=== PATIENT | male | born 1970 | race Caucasian/White ===

== ENCOUNTER → 2017-04-12 | Outpatient (CLI) | payer OTHER ==
[2017-04-12 07:50] LABS: HCT 46.2 % (39.0-53.0); MCH 30.4 pg (25.0-35.0); MCHC 32.5 g/dL (31.0-37.0); MCV 93.4 fL (80.0-100.0); Mean Platelet Volume 7.3; Platelet Count 221 k/uL (150-450); RBC 4.95 m/uL (4.30-5.90); RDW 11.8 % (11.5-15.5); WBC 7.1 k/uL (3.8-10.6)
== END | disposition home or self-care (01) ==
LOC: LABPAT 07:29
PROVIDERS: ATTEND Surgery Plastic and Reconstructive Surgery
DX: Z01.812 Encounter for preprocedural laboratory examination (principal); K43.9 Ventral hernia without obstruction or gangrene
CPT/HCPCS: 36415; 85027

== ENCOUNTER 2017-08-01 06:26 | Day surgery (SDC) | payer OTHER ==
[2017-07-25 16:14] VITALS: BMI 24.3
[~2017-08-01 06:26] MED LIST: HYDROmorphone 0.5 MG/0.5 ML SYRINGE IVP PRN; LACTATED RINGERS 1,000 ML IV SCH; MORPHINE SULFATE 2 MG/ML SYRINGE IV PRN; ceFAZolin IN SWFI 2 GM/20 ML SYRINGE IVP ONE
[2017-08-01] MEDS ORDERED: HEPARIN SODIUM,PORCINE 5,000 UNIT/ML 1 ML VIAL SQ ONE (06:39)
[2017-08-01] MEDS ORDERED: ACETAMINOPHEN IV (For NPO) 1,000 MG in EMPTY BAG 1 BAG IVPB ONE (06:39)
--- NOTE | 2017-08-01 06:39 | P.GSHP ---
History of Present Illness H&P Date: 08/01/17 CHIEF COMPLAINT: Ventral hernia HISTORY OF PRESENT ILLNESS: The patient is a 46-year-old male who presents with a history of swelling and pain along the abdomen from a hernia. Now he presents for surgical intervention. PAST MEDICAL HISTORY: Please see list. PAST SURGICAL HISTORY: Please see list. MEDICATIONS: Please see list. ALLERGIES: Please see list. SOCIAL HISTORY: No illicit drug use FAMILY HISTORY: No reports of Crohn disease or ulcerative colitis. REVIEW OF ORGAN SYSTEMS: CONSTITUTIONAL: No reports of fevers or chills. No reports of weight loss. GI: Denies any blood in stools. PHYSICAL EXAM: VITAL SIGNS: Stable GENERAL: Well-developed pleasant male in no acute distress. HEENT: No scleral icterus. Extraocular movements grossly intact. Moist buccal mucosa. NECK: Supple without lymphadenopathy. CHEST: Unlabored respirations. Equal bilateral excursions. CARDIOVASCULAR: Regular rate and rhythm. Distal 2+ pulses. ABDOMEN: Soft, nondistended. Palpable defect of the abdomen. No peritoneal signs. MUSCULOSKELETAL: No clubbing, cyanosis, or edema. ASSESSMENT: 1. History of incarcerated umbilical hernia. 2. Previous history of left inguinal hernia repair. PLAN: 1. I have discussed open versus robotic approach, laparoscopic approach were reviewed. Robotic ventral hernia repair described. 2. I have asked him to be cautious of lifting over 25 pounds or more, as incarcerated hernia with bowel is more detrimental. 3. DVT prophylaxis. 4. Antibiotics prophylaxis. Past Medical History Past Medical History: No Reported History Additional Past Medical History / Comment(s): VENTRAL HERNIA. History of Any Multi-Drug Resistant Organisms: None Reported Past Surgical History: Hernia Repair Additional Past Surgical History / Comment(s): LT ING HERNIA. Past Anesthesia/Blood Transfusion Reactions: Motion Sickness Smoking Status: Current every day smoker - Past Family History Mother Family Medical History: No Reported History Medications and Allergies Home Medications Medication Instructions Recorded Confirmed Type Vitamin B Complex 1 each PO DAILY 07/25/17 07/25/17 History Allergies Allergy/AdvReac Type Severity Reaction Status Date / Time No Known Allergies Allergy Verified 07/25/17 13:08
[2017-08-01] MEDS: ONDANSETRON 4 MG/2 ML VIAL IVP PRN ×2 (07:03→07:06)
[2017-08-01] MEDS ORDERED: LIDOCAINE 1% 20 ML VIAL (10MG/ML) FOR IV START INTRADERMA ONE (07:03)
[2017-08-01] MEDS ORDERED: DEXAMETHASONE SOD PHOSPHATE 10 MG/ML 1 ML VIAL IV ONE (07:06)
[2017-08-01] MEDS ORDERED: IBUPROFEN IV 400 MG in SODIUM CHLORIDE 0.9% 250 ML IV ONE (07:09)
[2017-08-01] MEDS ORDERED: LIDOCAINE 1% INJ 10MG/ML (20 ML MDV) ONE (08:23)
[2017-08-01] MEDS ORDERED: ROCURONIUM BROMIDE 10 MG/ML 10 ML VIAL IV ONE (08:23)
[2017-08-01] MEDS ORDERED: PROPOFOL 10 MG/ML 20 ML VIAL IV ONE (08:23)
[2017-08-01] MEDS ORDERED: MIDAZOLAM 2 MG/2 ML VIAL ONE (08:23)
[2017-08-01] MEDS ORDERED: HYDROmorphone (PF) 1 MG/ML ONE (08:23)
[2017-08-01] MEDS ORDERED: SUCCINYLCHOLINE CHLORIDE 100 MG/5 ML SYR IV ONE (08:23)
[2017-08-01] MEDS ORDERED: fentaNYL (PF) 50 MCG/ML 2 ML AMP ONE (08:23)
[2017-08-01] MEDS ORDERED: BUPIVACAINE (PF) 0.5% 30 ML VIAL SQ ONE (08:48)
[2017-08-01] MEDS ORDERED: LACTATED RINGERS 1,000 ML IV ONE (09:52)
[2017-08-01] MEDS ORDERED: HYDROmorphone 1 MG/ML 1 ML SYRINGE IVP ONE ×2 (10:01→10:06)
[2017-08-01 10:06] VITALS: TEMP 98
[2017-08-01] MEDS ORDERED: MEPERIDINE 50 MG/ML SYRINGE IVP ONE (10:21)
[2017-08-01 10:48] VITALS: RESP 16
--- NOTE | 2017-08-01 11:17 | P.PCN ---
Date of Procedure: 08/01/17 Preoperative Diagnosis: Initial incarcerated umbilical hernia Postoperative Diagnosis: Same Procedure(s) Performed: Robotic-assisted repair of incarcerated umbilical hernia with mesh Anesthesia: LI, local Surgeon: Theresa Saleh [place] Hand #1: Pranav Soria Estimated Blood Loss (ml): 5 Pathology: other (Incarcerated umbilical hernia) Condition: stable Disposition: same day Operative Findings: 1. Right direct inguinal hernia without incarceration 2. Incarcerated umbilical hernia, 2 cm 3. Extraperitoneal mesh along left groin without recurrent hernia
[2017-08-01] MEDS ORDERED: oxyCODONE-APAP 5-325MG 1 EACH TAB PO ONE (11:44)
[2017-08-01 12:59] VITALS: BP 151/82; PULSE 60
--- NOTE | 2017-08-11 08:10 | P.OP ---
Date of Procedure: 08/01/17 Description of Procedure: Date of Procedure: 08/01/17 SURGEON: THERESA SALEH MD PREOPERATIVE DIAGNOSES: 1. Initial incarcerated umbilical hernia 2. History of tobacco abuse 3. Previous history of left inguinal hernia repair POSTOPERATIVE DIAGNOSES: 1. Initial incarcerated umbilical hernia, 2 cm 2. History of tobacco abuse 3. Right direct inguinal hernia without incarceration 4. Previous history of left inguinal hernia repair OPERATION: 1. Robotic-assisted da Jennifer Xi laparoscopic reduction and repair of 2 cm initial incarcerated umbilical hernia with mesh, ventralight ST mesh 11.4 cm Anesthesia: GETA, local Supply Room Clerk #1: Pranav Soria Estimated Blood Loss (ml): 5 Pathology: other (Incarcerated umbilical hernia) Condition: stable Disposition: same day COMPLICATIONS: None. Operative Findings: 1. Right direct inguinal hernia without incarceration 2. Incarcerated umbilical hernia, 2 cm 3. Extraperitoneal mesh along left groin without recurrent inguinal hernia 4. Console time 48 minutes INDICATIONS: The patient is a 46-year-old male who presents with periumbilical pain. Surgical intervention with laparoscopic versus robotic and open techniques were reviewed. Placement of mesh was also reviewed. Benefits and risks were thoroughly described. Informed consent was obtained. DESCRIPTION OF PROCEDURE: The patient was brought into the operating room and laid in supine position. After general induction, the abdomen had been prepped and draped in standard sterile fashion. Ioban draping was also placed. Prior to incision, a timeout protocol was confirmed with surgical team regarding the patient's name including procedures to be performed. The robot was primed prior to the procedure. A field block using local anesthetic was placed along hernia site including the proposed port sites. Initial incision was made with #11 blade along the left upper quadrant. A 0 degree 5 mm laparoscopic trocar entry was performed. Diagnostic laparoscopy demonstrated adhesions and an extraperitoneal mesh repair of the left groin without recurrent inguinal hernia. A right inguinal hernia was identified without incarceration. An 8 mm trocar was placed along the left lateral abdominal wall approximately 12 cm lateral to the lower midline. An 8 mm port was placed along the left lower quadrant under direct localization. The 5-mm port was exchanged for an 8 mm robotic port. Placements of the ports were 15 cm from the target anatomy and approximately 10 cm apart. The da Jennifer Xi robot was previously primed, prepped and draped then docked along the left side of the patient. I then sat at the robot Da Jennifer Xi console where working arms of the robot including Bovie cautery connected to robotic scissors, needle driver helper, and graspers placed by the sourcing assistant. Fascial defect of 2 cm of the umbilicus was identified after cleaning the peritoneal fat of the abdominal wall. The incarcerated contents was reduced as the peritoneal fat was cleaned from the abdominal wall. Next, hemostasis was checked with cautery. The hernia defect was oversewn using #1 Stratafix with imbrication 3. Next, ventralight ST mesh 11.4 cm was placed with the rough side towards the abdominal wall. 2-0 VLOC 9 inch sutures were used to fixate the mesh. A final endoscopic imaging was obtained. All instruments and pneumoperitoneum were evacuated from the abdominal cavity. The da Jennifer Xi robot was undocked from the patient. I re-scrubbed into the case for closure of incisions. The incisions were re-approximated using 4-0 Monocryl in an interrupted subcuticular fashion. Liquid glue was applied to the skin after cleansing the skin with normal saline and dilute hydrogen peroxide. A dressing was placed at the umbilicus with 4 x 4 gauze followed by Tegaderm. An abdominal binder was placed. At the end of the procedure, needle, sponge, and instrument count had been verified correct by surgical device sales representative. The patient was taken to the postanesthesia care unit in stable condition. Plan - Discharge Summary Discharge Rx Participant: Yes New Discharge Prescriptions: New Ibuprofen [Motrin] 600 mg PO Q8HR PRN #30 tab PRN Reason: Pain oxyCODONE-APAP 5-325MG [Percocet 5-325 mg] 1 tab PO Q6HR PRN 3 Days #12 tab PRN Reason: Pain No Action Vitamin B Complex 1 each PO DAILY Discharge Medication List Vitamin B Complex 1 each PO DAILY 07/25/17 [History] Ibuprofen [Motrin] 600 mg PO Q8HR PRN #30 tab 08/01/17 [Rx] oxyCODONE-APAP 5-325MG [Percocet 5-325 mg] 1 tab PO Q6HR PRN 3 Days #12 tab 10/11 [Rx] Follow up Appointment(s)/Referral(s): Theresa Saleh MD [STAFF PHYSICIAN] - 08/05/17 Patient Instructions/Handouts: *Surgery [facility] - (Anesthesia) Discharge Instructions Outpatient Surgery, Laparoscopic Herniorrhaphy (DC), Abdominal Binder (DC) Activity/Diet/Wound Care/Special Instructions: No lifting over 4 pounds 4 weeks. We'll be of restriction August 31June shower. No bathtub soaks. Do not remove dressing until seen by surgeon. Wear abdominal binder at all times until seen by surgeon. Discharge Disposition: HOME SELF-CARE
== END 2017-08-01 13:55 | disposition home or self-care (01) ==
LOC: OR 06:26
PROVIDERS: ATTEND Surgery Plastic and Reconstructive Surgery
DX: K42.0 Umbilical hernia with obstruction, without gangrene (principal); K40.90 Unilateral inguinal hernia, without obstruction or gangrene, not specified as recurrent; F17.200 Nicotine dependence, unspecified, uncomplicated
CPT/HCPCS: 49653; S2900; 88302